=== PATIENT | female | born 1940 | race Caucasian/White ===

== ENCOUNTER → 2016-12-22 | Outpatient (CLI) | payer MEDICARE ==
--- NOTE | 2016-12-22 11:53 | MM ---
Reason for exam: additional evaluation requested from prior study. Last mammogram was performed 1 year ago. History: Patient is postmenopausal, has history of breast cancer at age 46, and history of other cancer. Family history of breast cancer in mother at age 66, breast cancer in maternal cousin at age 50, and breast cancer in 3 other maternal cousins. Excisional biopsy of the right breast, 2000. Lumpectomy of the right breast, 1986. Excisional biopsy of the left breast, 1960. Radiation therapy. Took tamoxifen for 18 years beginning at age 47. Physical Findings: Nurse did not find any significant physical abnormalities on exam. MG 3D Diag Mammo W/Cad ASHKAN Bilateral CC and MLO view(s) were taken. Prior study comparison: December 18, 2015, bilateral MG 3d diag mammo w/cad ASHKAN. December 16, 2014, bilateral MG diagnostic mammo w CAD ASHKAN. The breast tissue is heterogeneously dense. This may lower the sensitivity of mammography. Finding: Architectural distortion in the right breast consistent with previous surgery. No significant changes in finding since December 18, 2015 and December 16, 2014. These results were verbally communicated with the patient and result sheet given to the patient on 12/22/16. ASSESSMENT: Benign, BI-RAD 2 RECOMMENDATION: Routine screening mammogram of both breasts in 1 year.
== END | disposition home or self-care (01) ==
LOC: RADMAMWWP 11:01
PROVIDERS: ATTEND Internal Medicine Hematology & Oncology
DX: Z85.3 Personal history of malignant neoplasm of breast (principal)
CPT/HCPCS: G0204; G0279

== ENCOUNTER 2017-01-07 14:17 | Emergency (ER) | payer MEDICARE ==
[2017-01-07] MEDS ORDERED: diphenhydrAMINE 50 MG CAP PO STA (16:03)
--- NOTE | 2017-01-07 16:05 | ED ---
General Adult HPI - General Chief complaint: Recheck/Abnormal Lab/Rx Stated complaint: poss reaction to iodine/arm swelling Source: patient Mode of arrival: ambulatory Limitations: no limitations - History of Present Illness Initial comments: Patient is a 76-year-old female who presents to the emergency department for evaluation of left arm swelling after a computed tomography scan with IV contrast this morning. Patient reports she has a known ALLERGY to iodine and because of this was premedicated for this computed tomography scan. She reports that the computed tomography scan occurred without incident but approximately 2 hours later she noticed swelling of her left arm where her IV had been placed. She called the department and they advised her that there is concern that she could possibly be bleeding or having ALLERGIC reaction and advised her to come to the emergency department for evaluation. She reports she initially noted the swelling around 1 PM, she was evaluated this afternoon around 3 PM and believed at that time that the swelling had artery began to improve. Patient denies any fevers, chills, chest tightness, rash, GI upset or any other signs or symptoms of ALLERGIC reaction. She does state that she is very tired she was premedicated with Benadryl and she usually takes a nap every day which she has not gotten a chance to do today. Other than that she has no complaints. She denies any pain in the arm, parasthesias or weakness. - Related Data Home Medications Medication Instructions Recorded Confirmed Acetaminophen/Diphenhydramine 2 tab PO HS 03/17/15 01/07/17 [Tylenol PM 500-25mg] Ascorbic Acid [Vitamin C] 500 mg PO DAILY 03/17/15 01/07/17 Atorvastatin [Lipitor] 20 mg PO HS 03/17/15 01/07/17 Calcium Carbonate/Vitamin D3 1 tab PO BID 03/17/15 01/07/17 [Calcium 600-Vit D3 400 Tablet] Carvedilol 37.5 mg PO BID 03/17/15 01/07/17 Cranberry Fruit Extract [Theracran] 650 mg PO DAILY 03/17/15 01/07/17 Estradiol [Estrace Cream 0.01%] 1 applicator VAGINAL Q7D 03/17/15 01/07/17 Fenofibrate Nanocrystallized 145 mg PO HS 03/17/15 01/07/17 [Tricor] Magnesium Gluconate [Magonate] 500 mg PO DAILY 03/17/15 01/07/17 Multivit with Calcium,Iron,Min 1 tab PO BID 03/17/15 01/07/17 [Women's Daily Multivitamin] Afton-3 Fatty Acids [Afton-3] 1,000 mg PO BID 03/17/15 01/07/17 Omeprazole [PriLOSEC] 20 mg PO QAM 03/17/15 01/07/17 Valsartan [Diovan] 160 mg PO HS 03/17/15 01/07/17 Vitamin E (Dl,Tocopheryl Acet) 400 unit PO DAILY 03/17/15 01/07/17 [Vitamin E] metFORMIN HCL [Glucophage] 1,000 mg PO AC-BID 03/17/15 01/07/17 Spironolactone [Aldactone] 25 mg PO QAM 04/18/15 01/07/17 Iron Tab 45 mg PO DAILY 04/28/15 01/07/17 Lactobacillus Acidophilus 1 tab PO DAILY 05/06/15 01/07/17 [Acidophilus] Warfarin [Coumadin] 10 mg PO DAILY 01/07/17 01/07/17 Previous Rx's Medication Instructions Recorded Venlafaxine HCl ER [Effexor XR] 225 mg PO HS #30 cap.er.24h 03/26/15 Allergies Allergy/AdvReac Type Severity Reaction Status Date / Time adhesive Allergy Rash/Hives Verified 01/07/17 15:28 iodine Allergy Rash/Hives Verified 01/07/17 15:28 latex Allergy Rash/Hives Verified 01/07/17 15:28 Sulfa (Sulfonamide Allergy severe Verified 01/07/17 15:28 Antibiotics) headache and rash Review of Systems ROS Statement: Those systems with pertinent positive or pertinent negative responses have been documented in the HPI. ROS Other: All systems not noted in ROS Statement are negative. 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) Respiratory: Denies: cough, dyspnea, wheezes Cardiovascular: Denies: chest pain, palpitations Endocrine: Reports: fatigue Gastrointestinal: Denies: abdominal pain, nausea Skin: Reports: rash (Erythema of the face secondary to radiation contusion and left antecubital fossa consistent with recent IV placement) Neurological: Denies: weakness, numbness, paresthesias Psychiatric: Denies: anxiety Hematological/Lymphatic: Reports: easy bleeding, easy bruising Past Medical History Past Medical History: Blood Disorder, Coronary Artery Disease (CAD), Cancer, Heart Failure, Diabetes Mellitus, Eye Disorder, GERD/Reflux, Hyperlipidemia, Hypertension, Osteoarthritis (OA) Additional Past Medical History / Comment(s): CARDIAC HISTORY (DEFER TO DR. HERNANDEZ NOTES). RT BREAST [id number]. LT LUNG DAMAGED POST SX. (AORTIC VALVE) LT SIDE OF DIAPHRAGM PARALIZED. ARTHRITIS HIPS & KNEES, NECK & SHOULDER PAIN,PANCYTOPENIA- HAD BONE MARROW DONE-NOT CONCLUSIVE, URINE LEAKAGE-WEARS PAD DAILY, OTC GLASSES TO READ ONLY History of Any Multi-Drug Resistant Organisms: None Reported Past Surgical History: Breast Surgery, Cardiac Ablation, Hysterectomy, Pacemaker Additional Past Surgical History / Comment(s): EXC.ASHKAN.CATARACTS WITH LENS IMPLANTS,AORTIC VALVE REPLACE 1996-[facility],. PACEMAKER -2008-[facility],. COLONOSCOPY,. RT [id number] RADIATION & ORAL TAMOXIFEN,. bone marrow biopsy 03/18/2015 Past Anesthesia/Blood Transfusion Reactions: No Reported Reaction Type of Cardiac Device: Permanent Pacemaker Device Placement Date:: 2008 Past Psychological History: No Psychological Hx Reported Smoking Status: Former smoker - Past Family History Father Family Medical History: Cancer Additional Family Medical History / Comment(s): COLON CA Mother Family Medical History: Cancer Additional Family Medical History / Comment(s): BREAST CA General Exam Limitations: no limitations General appearance: alert, in no apparent distress Head exam: Present: atraumatic, normocephalic, normal inspection Eye exam: Present: EOMI, periorbital swelling (Patient underwent periocular radiation today) ENT exam: Present: normal exam, mucous membranes moist Neck exam: Absent: tenderness Respiratory exam: Present: normal lung sounds bilaterally. Absent: respiratory distress, wheezes, rales Cardiovascular Exam: Present: regular rate, normal rhythm, clicks (mechanical valve click) GI/Abdominal exam: Present: soft. Absent: distended Rectal exam: Present: deferred Left Shoulder Exam: Present: normal inspection Upper Arm exam: Present: full ROM, swelling. Absent: tenderness, abrasion, laceration, ecchymosis, deformity, crepidus, dislocation, erythema Elbow exam: Present: full ROM, swelling, ecchymosis. Absent: tenderness, abrasion, laceration, deformity, crepitus, dislocation, erythema, pain w/ pronation/supination, tenderness over radial head Forearm Wrist exam: Present: swelling Hand Wrist exam: Present: normal inspection, other (Normal radial and ulnar pulses) Neuro motor exam: Present: wrist extension intact, thumb opposition intact, thumb IP flexion intact, thumb adduction intact, fingers 2-5 abduction intact Vascular: Present: normal capillary refill Back exam: Present: other (kyphosis) Neurological exam: Present: alert, oriented X3 Psychiatric exam: Present: normal affect, normal mood Skin exam: Present: warm, dry, intact, normal color. Absent: rash Course Vital Signs 01/07/17 14:59 Temperature 97.8 F Pulse Rate 99 Respiratory 18 Rate Blood Pressure 152/70 O2 Sat by Pulse 97 Oximetry - Reevaluation(s) Reevaluation #1: Was reevaluated after the ice at been applied to her arm for approximately 15 minutes. Swelling is decreasing and she feels that her arm is softer. 01/07/17 16:22 Medical Decision Making - Medical Decision Making Patient was seen and evaluated, vital signs were reviewed History was provided by the patient, her medical record as well as her at bedside Underwent a computed tomography scan with IV contrast which was administered via IV in her left antecubital vein earlier this morning She reports around 1 PM she noticed swelling of her left arm No neuro complaints, no pain in the arm Physical exam with soft swelling to the left medial arm at the area of the elbow extending correction up the humerus and approximately correction down the forearm There is green marker on the patient's skin where she had marked the extent of the swelling, it appears to her that her swelling is already decreasing Patient's left arm is neurovascularly intact with strong radial ulnar pulses, normal sensation and strength Swelling is soft and nontender all compartments in the arm are soft and patient has full range of motion I suspect that the patient had some extravasation of blood as well as IV contrast and may be having a mild ALLERGIC reaction There is no signs of compartment syndrome, neurovascular compromise or infection A she was ordered a dose of Benadryl and given an ice pack to apply to her swelling Proper use of an icepack was discussed with patient All questions pertaining to care were answered to the best of my ability, patient appears to be having a mild ALLERGIC reaction with some soft tissue swelling. Recent is in stable condition for discharge home in the care of her . I discussed with the patient and her signs and symptoms of cellulitis as well as compartment syndrome or worsening ALLERGIC reaction advised them to return to the department for any development of concerning symptoms. Patient has been at bedside expressed understanding. Patient was discharged home. Disposition Clinical Impression: Swelling of right upper extremity Clinical Impression: (Ruled Out): Swelling in right armpit Disposition: HOME SELF-CARE Instructions: General Allergic Reaction (ED) Additional Instructions: Apply ice pack to swollen area for 15 minutes at a time and then remove for 15 minutes. Do not apply ice directly to skin, use a towel to shield the skin. Advised painful remove the ice from the skin. Referrals: Eduardo Garcia DO [Primary Care Provider] - 1-2 days Time of Disposition: 16:05
[2017-01-07 16:37] VITALS: BP 151/71; PULSE 90; RESP 16; TEMP 97.7
== END 2017-01-07 16:39 | disposition home or self-care (01) ==
LOC: EC 14:17
DX: M79.89 Other specified soft tissue disorders (principal); I25.10 Atherosclerotic heart disease of native coronary artery without angina pectoris; I11.0 Hypertensive heart disease with heart failure; I50.9 Heart failure, unspecified; E11.9 Type 2 diabetes mellitus without complications; K21.9 Gastro-esophageal reflux disease without esophagitis; E78.5 Hyperlipidemia, unspecified; M16.0 Bilateral primary osteoarthritis of hip; M17.0 Bilateral primary osteoarthritis of knee; Z85.3 Personal history of malignant neoplasm of breast; Z87.891 Personal history of nicotine dependence; Z88.2 Allergy status to sulfonamides; Z91.040 Latex allergy status; Z91.048 Other nonmedicinal substance allergy status; Z79.84 Long term (current) use of oral hypoglycemic drugs; Z79.01 Long term (current) use of anticoagulants; Z79.899 Other long term (current) drug therapy
CPT/HCPCS: 99283

== ENCOUNTER → 2017-01-07 | Outpatient (CLI) | payer MEDICARE ==
--- NOTE | 2017-01-07 08:14 | CT ---
EXAMINATION TYPE: CT ChestAbdPelvis w con DATE OF EXAM: 01/07/2017 COMPARISON: 01/28/2012 HISTORY: Lymphoma CT DLP: 659.20 mGycm Automated exposure control for dose reduction was used. CONTRAST: CT scan of the chest, abdomen and pelvis is performed with Oral Contrast and with IV Contrast, patien t injected with 100 ml mL of Omnipaque 300. FINDINGS: LUNGS: There is a small the moderate right-sided pleural effusion. Interstitial pattern seen. Within the right upper lobe anterior segment on image 25 there is a 2 mm pulmonary nodule. Additional pulmon shreya nodule right upper lobe image 21 subsegmental areas of consolidation most typical of atelectasis. Additional 6 mm nodule right upper lobe on image 22. MEDIASTINUM: The heart is enlarged. Lack of contrast limits assessment for adenopathy. Shotty adenopa thy in the mediastinum and hilum noted bilaterally. No pathologic adenopathy in the axilla. Cardiac l dedra are noted. Suspected 1.7 cm pathologic noted in the upper mediastinum paratracheal left with add itional shotty adenopathy extending into the supraclavicular region. Also suspect a right paratrachea l area of adenopathy measuring a short axis I.4 cm. Contrast wasn't be recommended on future studies to help delineate separate vascular structures from adenopathy. Sternotomy changes noted. OTHER: No additional significant abnormality is seen. LIVER/GB: There are small gallstones. Liver measures 19 cm compatible with hepatomegaly. PANCREAS: No significant abnormality is seen. SPLEEN: Spleen measures 15 cm compatible with splenomegaly. ADRENALS: No significant abnormality is seen. KIDNEYS: No significant abnormality is seen. BOWEL: No significant abnormality is seen. LYMPH NODES: Numerous lymph nodes are seen throughout the mesentery and retroperitoneum compatible wi th shotty adenopathy. There are pathologic lymph nodes with the largest measuring a short axis of 1.6 cm left periaortic region. Lack of contrast limits assessment. Shotty adenopathy in the inguinal reg ion and iliac chains seen within 1.2 cm pathologic adenopathy noted in the right iliac chain. Numerou s shotty adenopathy seen scattered throughout the retroperitoneum, supraclavicular region and mediast inum OSSEOUS STRUCTURES: Hypertrophic and degenerative changes spine noted. OTHER: Trace amount of fluid is seen in the pelvis. There is thickening of the left rectus muscle whi ch measures 3 cm and has a more focal rounded nodular component measuring 1.6 cm. Differential diagno sis would include mass abscess or hematoma. There is new from the previous exam. IMPRESSION: 1. Marked thickening of the left rectus muscle new from the previous exam of 2011. Measures 3 cm with a more focal rounded area centrally measuring 1.6 cm. Differential diagnosis would include mass, pre vious hematoma. Although abscess not excluded there is no inflammatory change but should be correlate d clinically. 2. Pelvic, retroperitoneal and mediastinal adenopathy as measured above 3. Hepatosplenomegaly 4. Cholelithiasis 5. Small to moderate sized right pleural effusion. 6. There are 3 right-sided pulmonary nodules the largest measuring 6 mm within the right upper lobe.
== END | disposition home or self-care (01) ==
LOC: RADCTMAIN 06:47
PROVIDERS: ATTEND Internal Medicine Hematology & Oncology
DX: R59.0 Localized enlarged lymph nodes (principal); R16.2 Hepatomegaly with splenomegaly, not elsewhere classified; K80.20 Calculus of gallbladder without cholecystitis without obstruction; R91.8 Other nonspecific abnormal finding of lung field; J90 Pleural effusion, not elsewhere classified; C82.18 Follicular lymphoma grade II, lymph nodes of multiple sites
CPT/HCPCS: 71260; 74177; Q9967

== ENCOUNTER 2017-12-13 05:48 | Day surgery (SDC) | payer MEDICARE ==
[2017-12-12 10:47] VITALS: BMI 24.2
[~2017-12-13 05:48] MED LIST: LACTATED RINGERS 1,000 ML IV SCH; MIDAZOLAM 2 MG/2 ML VIAL IV PRN
[2017-12-13 06:22] VITALS: TEMP 97.8
[2017-12-13] MEDS ORDERED: LIDOCAINE 1% 20 ML VIAL (10MG/ML) FOR IV START INTRADERMA ONE (06:40)
[2017-12-13 06:42] LABS: Glucose,Whole Blood 178 mg/dL (75-99)
[2017-12-13] MEDS ORDERED: PROPOFOL 10 MG/ML 20 ML VIAL IV ONE (07:07)
[2017-12-13 07:51] VITALS: RESP 20
--- NOTE | 2017-12-13 07:56 | PCN ---
PROCEDURE NOTE DATE OF PROCEDURE: 12/13/2017 PREOPERATIVE DIAGNOSES: Anemia and lymphoma. POSTOPERATIVE DIAGNOSES: Anemia and lymphoma. PROCEDURE: Bone marrow aspirate and biopsy. SITE: Right iliac crest. ANESTHESIA: Local with IV systemic sedation. DETAILS: Utilizing sterile technique, the skin overlying the right iliac crest was prepared with Betadine and alcohol. After adequate sterile draping, local anesthesia and systemic sedation size 11, 4-inch Jamshidi needle was utilized to access the periosteum with ease. A total of 16 mL of aspirate as well as 1 cm bone core biopsies were obtained. The patient tolerated the procedure very well. There was no immediate procedure related complications. TOTAL BLOOD LOSS: Less than 1 mL. RESULTS: Pending. MMODL / IJN: [id number] /
[2017-12-13 08:09] VITALS: BP 133/77; PULSE 82
[2017-12-13 12:09] LABS: MCH 33.5 pg (25.0-35.0); MCHC 34.9 g/dL (31.0-37.0); Mean Platelet Volume 8.4; RBC 2.06 m/uL (3.80-5.40); RDW 14.3 % (11.5-15.5)
[2017-12-13 12:15] LABS: WBC 0.7 k/uL (3.8-10.6)
[2017-12-13 12:16] LABS: HCT 19.7 % (34.0-46.0); HGB 6.9 gm/dL (11.4-16.0)
[2017-12-13 12:41] LABS: Polychromasia Present
[2017-12-13 12:42] LABS: Platelet Count 83 k/uL (150-450)
== END 2017-12-13 08:17 | disposition home or self-care (01) ==
LOC: OR 05:48
PROVIDERS: ATTEND Internal Medicine Hematology & Oncology
DX: C85.90 Non-Hodgkin lymphoma, unspecified, unspecified site (principal); D64.9 Anemia, unspecified
CPT/HCPCS: 38222; 85025; J2704

== ENCOUNTER 2017-12-18 14:25 | Emergency (ER) | payer MEDICARE ==
[2017-12-18 15:16] LABS: HCT 24.7 % (34.0-46.0); HGB 8.2 gm/dL (11.4-16.0); MCH 33.2 pg (25.0-35.0); MCHC 33.3 g/dL (31.0-37.0); MCV 99.8 fL (80.0-100.0); Macrocytosis Slight; Mean Platelet Volume 7.4; Platelet Count 107 k/uL (150-450); Poikilocytosis Slight; RBC 2.48 m/uL (3.80-5.40); RDW 15.1 % (11.5-15.5)
[2017-12-18 15:24] LABS: WBC 0.9 k/uL (3.8-10.6)
[2017-12-18 15:32] LABS: INR 2.5 (<1.2); Partial Thromboplastin Time 29.9 sec (22.0-30.0); Prothrombin Time 22.7 sec (9.0-12.0)
--- NOTE | 2017-12-18 15:34 | XR ---
EXAMINATION TYPE: XR chest 2V DATE OF EXAM: 12/18/2017 COMPARISON: 05/07/2015 INDICATION: Weakness TECHNIQUE: Frontal and lateral views of the chest are obtained. FINDINGS: The heart size is normal. The pulmonary vasculature is normal. The lungs are clear. Pacemaker overlies left chest. IMPRESSION: 1. No acute pulmonary process.
[2017-12-18 15:36] LABS: ALT 25 U/L (9-52); AST 37 U/L (14-36); Albumin 4.3 g/dL (3.5-5.0); Alkaline Phosphatase 106 U/L (38-126); Anion Gap 13 mmol/L; Blood Urea Nitrogen 23 mg/dL (7-17); Calcium 9.5 mg/dL (8.4-10.2); Carbon Dioxide 24 mmol/L (22-30); Chloride 100 mmol/L (98-107); Glucose 144 mg/dL (74-99); Potassium 4.6 mmol/L (3.5-5.1); Sodium 137 mmol/L (137-145); Total Bilirubin 0.5 mg/dL (0.2-1.3); Total Protein 6.1 g/dL (6.3-8.2)
[2017-12-18 15:40] LABS: Creatine Kinase <20 U/L (30-135)
--- NOTE | 2017-12-18 15:41 | ED ---
General Adult HPI - General Chief complaint: Weakness Stated complaint: Lightheaded Time Seen by Provider: 12/18/17 14:38 Source: patient, family, RN notes reviewed Mode of arrival: wheelchair Limitations: no limitations - History of Present Illness Initial comments: Patient is a pleasant 77-year-old female presenting to the emergency department with lightheadedness. Onset of symptoms was a few days ago. Symptoms were somewhat worse today. No spinning type sensation. Symptoms are worse with upright position and movement. No chest pain. No dyspnea. Patient had difficulty obtaining neck her blood pressure this morning. Patient did recently have her blood pressure medication lower secondary to blood pressure readings at her doctor's office. 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 Tafoya for this. - Related Data Home Medications Medication Instructions Recorded Confirmed Acetaminophen/Diphenhydramine 2 tab PO HS 03/17/15 12/18/17 [Tylenol PM 500-25mg] Ascorbic Acid [Vitamin C] 500 mg PO DAILY 03/17/15 12/18/17 Atorvastatin [Lipitor] 10 mg PO HS 03/17/15 12/18/17 Calcium Carbonate/Vitamin D3 2 tab PO BID 03/17/15 12/18/17 [Calcium 600-Vit D3 400 Tablet] Carvedilol 12.5 mg PO BID 03/17/15 12/18/17 Cranberry Fruit Extract [Theracran] 650 mg PO DAILY 03/17/15 12/18/17 Estradiol [Estrace Cream 0.01%] 1 applicator VAGINAL Q3D PRN 03/17/15 12/18/17 [place]-3 Fatty Acids [[place]-3] 1,000 mg PO BID 03/17/15 12/18/17 Omeprazole [PriLOSEC] 20 mg PO BID 03/17/15 12/18/17 Valsartan [Diovan] 160 mg PO HS 03/17/15 12/18/17 Vitamin E (Dl,Tocopheryl Acet) 400 unit PO DAILY 03/17/15 12/18/17 [Vitamin E] metFORMIN HCL [Glucophage] 1,000 mg PO QAM 03/17/15 12/18/17 Warfarin [Coumadin] 10 mg PO MOTUTHFRSA 01/07/17 12/18/17 Clopidogrel Bisulfate [Plavix] 75 mg PO DAILY 12/12/17 12/18/17 Furosemide [Lasix] 40 mg PO QAM 12/12/17 12/18/17 Multivit-Min/Iron/Folic/Lutein 1 tab PO DAILY 12/12/17 12/18/17 [Centrum Silver Women Tablet] Polyethylene Glycol 3350 [Miralax] 17 gm PO DAILY 12/12/17 12/18/17 Potassium Chloride [Klor-Con 10] 10 meq PO DAILY 12/12/17 12/18/17 Warfarin [Coumadin] 5 mg PO SUWE 12/12/17 12/18/17 metFORMIN HCL [Glucophage] 500 mg PO HS@1800 12/12/17 12/18/17 Previous Rx's Medication Instructions Recorded Venlafaxine HCl ER [Effexor XR] 225 mg PO HS #30 cap.er.24h 03/26/15 Allergies Allergy/AdvReac Type Severity Reaction Status Date / Time adhesive Allergy Rash/Hives Verified 12/18/17 14:57 iodine Allergy Rash/Hives Verified 12/18/17 14:57 latex Allergy Rash/Hives Verified 12/18/17 14:57 Sulfa (Sulfonamide Allergy severe Verified 12/18/17 14:57 Antibiotics) headache and rash Review of Systems ROS Statement: Those systems with pertinent positive or pertinent negative responses have been documented in the HPI. ROS Other: All systems not noted in ROS Statement are negative. Constitutional: Denies: fever Eyes: Denies: eye pain ENT: Denies: ear pain Respiratory: Denies: cough, dyspnea Cardiovascular: Denies: chest pain Endocrine: Denies: fatigue Gastrointestinal: Denies: abdominal pain Genitourinary: Denies: dysuria Musculoskeletal: Denies: back pain Skin: Denies: rash Neurological: Denies: weakness Past Medical History Past Medical History: Blood Disorder, Coronary Artery Disease (CAD), Cancer, Heart Failure, Diabetes Mellitus, Eye Disorder, GERD/Reflux, Hyperlipidemia, Hypertension, Osteoarthritis (OA) Additional Past Medical History / Comment(s): CARDIAC HISTORY (DEFER TO DR. HERNANDEZ NOTES). RT BREAST [id number]. 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 COLONOSCOPY,. RT [id number] RADIATION & ORAL TAMOXIFEN,. Bone Marrow Dx x2 Past Anesthesia/Blood Transfusion Reactions: No Reported Reaction, Motion Sickness Date of Last Stent Placement:: x2 stents Type of Cardiac Device: Permanent Pacemaker Device Placement Date:: 2008 Past Psychological History: Depression Smoking Status: Former smoker Past Alcohol Use History: None Reported Past Drug Use History: None Reported - Past Family History Father Family Medical History: Cancer Additional Family Medical History / Comment(s): COLON CA Mother Family Medical History: Cancer Additional Family Medical History / Comment(s): BREAST CA General Exam Limitations: no limitations General appearance: alert, in no apparent distress Head exam: Present: atraumatic Eye exam: Present: normal appearance, PERRL, EOMI. Absent: nystagmus ENT exam: Present: normal oropharynx Neck exam: Present: normal inspection Respiratory exam: Present: normal lung sounds bilaterally Cardiovascular Exam: Present: regular rate, normal rhythm Expanded Peripheral pulses: 2+: Radial (R), Radial (L), Dorsalis Pedis (R), Dorsalis Pedis (L) GI/Abdominal exam: Present: soft. Absent: tenderness Extremities exam: Present: normal inspection Neurological exam: Present: alert, CN II-XII intact. Absent: motor sensory deficit Expanded Neurological exam: Present: protecting the airway Speech: Present: fluid speech Cranial nerves: EOM's Intact: Normal, Facial Sensation: Normal Sensory exam: Upper Extremity Light Touch: Normal, Lower Extremity Light Touch: Normal Motor strength exam: RUE: 5, LUE: 5, RLE: 5, LLE: 5 Eye Response: (4) open spontaneously Motor Response: (6) obeys commands Verbal Response: (5) oriented Psychiatric exam: Present: normal affect, normal mood Skin exam: Present: normal color Course Vital Signs 12/18/17 12/18/17 12/18/17 14:26 16:16 16:35 Temperature 98.2 F Pulse Rate 100 91 Respiratory 18 16 16 Rate Blood Pressure 160/79 123/65 O2 Sat by Pulse 100 100 Oximetry EKG Findings - EKG Comments: EKG Findings:: Paced rhythm and 99. VT 148. QRS 132. QT 404. QTC 518. Normal axis. No acute ST change. Medical Decision Making - Medical Decision Making Patient reevaluated and resting comfortably in bed. Patient and family updated on results. Patient tolerating symptoms at this time. Case was discussed in detail with Dr. Tafoya, who is familiar with this patient and is okay with discharge and follow-up. - Lab Data Result diagrams: 12/18/17 14:45 12/18/17 14:45 Lab Results 12/18/17 12/18/17 12/18/17 Range/Units 14:45 14:45 14:45 WBC 0.9 L* (3.8-10.6) k/uL RBC 2.48 L (3.80-5.40) m/uL Hgb 8.2 L (11.4-16.0) gm/dL Hct 24.7 L (34.0-46.0) % MCV 99.8 (80.0-100.0) fL MCH 33.2 (25.0-35.0) pg MCHC 33.3 (31.0-37.0) g/dL RDW 15.1 (11.5-15.5) % Plt Count 107 L (150-450) k/uL Manual Slide Review Performed Poikilocytosis Slight Macrocytosis Slight PT (9.0-12.0) sec INR (<1.2) APTT (22.0-30.0) sec Sodium 137 (137-145) mmol/L Potassium 4.6 (3.5-5.1) mmol/L Chloride 100 (98-107) mmol/L Carbon Dioxide 24 (22-30) mmol/L Anion Gap 13 mmol/L BUN 23 H (7-17) mg/dL Creatinine 0.70 (0.52-1.04) mg/dL Est GFR (CKD-EPI)AfAm >90 (>60 ml/min/1.73 sqM) Est GFR (CKD-EPI)NonAf 84 (>60 ml/min/1.73 sqM) Glucose 144 H (74-99) mg/dL Plasma Lactic Acid Aleks (0.7-2.0) mmol/L Calcium 9.5 (8.4-10.2) mg/dL Total Bilirubin 0.5 (0.2-1.3) mg/dL AST 37 H (14-36) U/L ALT 25 (9-52) U/L Alkaline Phosphatase 106 (38-126) U/L Total Creatine Kinase <20 L (30-135) U/L CK-MB (CK-2) 0.3 (0.0-2.4) ng/mL CK-MB (CK-2) Rel Index Troponin I <0.012 (0.000-0.034) ng/mL Total Protein 6.1 L (6.3-8.2) g/dL Albumin 4.3 (3.5-5.0) g/dL 12/18/17 12/18/17 Range/Units 14:45 14:45 WBC (3.8-10.6) k/uL RBC (3.80-5.40) m/uL Hgb (11.4-16.0) gm/dL Hct (34.0-46.0) % MCV (80.0-100.0) fL MCH (25.0-35.0) pg MCHC (31.0-37.0) g/dL RDW (11.5-15.5) % Plt Count (150-450) k/uL Manual Slide Review Poikilocytosis Macrocytosis PT 22.7 H (9.0-12.0) sec INR 2.5 H (<1.2) APTT 29.9 (22.0-30.0) sec Sodium (137-145) mmol/L Potassium (3.5-5.1) mmol/L Chloride (98-107) mmol/L Carbon Dioxide (22-30) mmol/L Anion Gap mmol/L BUN (7-17) mg/dL Creatinine (0.52-1.04) mg/dL Est GFR (CKD-EPI)AfAm (>60 ml/min/1.73 sqM) Est GFR (CKD-EPI)NonAf (>60 ml/min/1.73 sqM) Glucose (74-99) mg/dL Plasma Lactic Acid Aleks 2.0 (0.7-2.0) mmol/L Calcium (8.4-10.2) mg/dL Total Bilirubin (0.2-1.3) mg/dL AST (14-36) U/L ALT (9-52) U/L Alkaline Phosphatase (38-126) U/L Total Creatine Kinase (30-135) U/L CK-MB (CK-2) (0.0-2.4) ng/mL CK-MB (CK-2) Rel Index Troponin I (0.000-0.034) ng/mL Total Protein (6.3-8.2) g/dL Albumin (3.5-5.0) g/dL - Radiology Data Radiology results: report reviewed (Computed tomography scan of the brain shows chronic changes.), image reviewed (Two-view chest x-ray shows no acute process.) Disposition Clinical Impression: Lightheadedness Disposition: HOME SELF-CARE Condition: Stable Instructions: Lightheadedness (ED) Additional Instructions: Please follow-up with Dr. Tafoya and primary care physician in the beginning of the week. Return for increased lightheadedness, difficulty walking, confusion, weakness, worsening or changing symptoms or other concerns. Is patient prescribed a controlled substance at d/c from ED?: No Referrals: Eduardo Garcia DO [Primary Care Provider] - 1-2 days Darnell Tafoya MD [STAFF PHYSICIAN] - 1-2 days Time of Disposition: 17:11
[2017-12-18 15:53] LABS: Creatine Kinase MB 0.3 ng/mL (0.0-2.4); Troponin I <0.012 ng/mL (0.000-0.034)
[2017-12-18 16:18] VITALS: RESP 16
--- NOTE | 2017-12-18 16:31 | CT ---
EXAMINATION TYPE: CT brain wo con DATE OF EXAM: 12/18/2017 COMPARISON: NONE INDICATION: Dizziness DLP: 1064.2 mGycm, Automated exposure control for dose reduction was used. CONTRAST: None CT of the brain is performed utilizing 3 mm thick sections through the posterior fossa and 3 mm thick sections through the remaining calvarium. Study is performed within 24 hours of arrival to the hosp ital. No abnormal hyperdensity is present to suggest an acute intracranial hemorrhage. No mass lesion is evident. No acute infarcts are evident. There is periventricular white matter hypodensity, most likely on the basis of chronic white matter ischemic changes is may be somewhat confluent. Physiologic basal gangli on calcification is present. Ventricles and sulci are mildly prominent for the patient age. Paranasal sinuses and mastoid air cells within the [id number] are clear. IMPRESSIONS: 1. Chronic appearing periventricular white matter ischemic changes.
[2017-12-18] MEDS ORDERED: SODIUM CHLORIDE 0.9% 250 ML IV STA (17:07)
[2017-12-18 17:46] VITALS: BP 122/72; PULSE 90
[2017-12-18 18:15] VITALS: TEMP 97.8
== END 2017-12-18 18:15 | disposition home or self-care (01) ==
LOC: EC 14:25
DX: R42 Dizziness and giddiness (principal); I25.10 Atherosclerotic heart disease of native coronary artery without angina pectoris; I11.0 Hypertensive heart disease with heart failure; I50.9 Heart failure, unspecified; E78.5 Hyperlipidemia, unspecified; K21.9 Gastro-esophageal reflux disease without esophagitis; E11.9 Type 2 diabetes mellitus without complications; M19.90 Unspecified osteoarthritis, unspecified site; F32.9 Major depressive disorder, single episode, unspecified; Z87.891 Personal history of nicotine dependence; Z85.3 Personal history of malignant neoplasm of breast; Z85.830 Personal history of malignant neoplasm of bone; Z85.828 Personal history of other malignant neoplasm of skin; Z79.01 Long term (current) use of anticoagulants; Z79.84 Long term (current) use of oral hypoglycemic drugs; Z79.899 Other long term (current) drug therapy; Z88.2 Allergy status to sulfonamides; Z91.040 Latex allergy status; Z91.048 Other nonmedicinal substance allergy status; Z88.8 Allergy status to other drugs, medicaments and biological substances; Z95.0 Presence of cardiac pacemaker; Z95.5 Presence of coronary angioplasty implant and graft
CPT/HCPCS: 36415; 70450; 71046; 80053; 82550; 82553; 83605; 84484; 85025; 85610; 85730; 93005; 96360; 99285

== ENCOUNTER → 2018-01-13 | Outpatient (CLI) | payer MEDICARE ==
--- NOTE | 2018-01-16 09:00 | MM ---
Reason for exam: additional evaluation requested from prior study. Last mammogram was performed 1 year and 1 month ago. History: Patient is postmenopausal, has history of breast cancer at age 46, and history of other cancer. Family history of breast cancer in mother at age 66, breast cancer in maternal cousin at age 50, and breast cancer in 3 other maternal cousins. Excisional biopsy of the right breast, 2000. Lumpectomy of the right breast, 1986. Excisional biopsy of the left breast, 1960. Radiation therapy. Taking progesterone beginning at age 57. Took tamoxifen for 18 years beginning at age 47. Physical Findings: Nurse did not find any significant physical abnormalities on exam. MG 3D Diag Mammo W/Cad ASHKAN Bilateral CC and MLO view(s) were taken. Prior study comparison: December 22, 2016, bilateral MG 3d diag mammo w/cad ASHKAN. December 18, 2015, bilateral MG 3d diag mammo w/cad ASHKAN. The breast tissue is extremely dense which could obscure a lesion on mammography. Finding #1: Architectural distortion in the upper outer quadrant of the right breast consistent with known lumpectomy. Finding #2: There are typically benign vascular, dystrophic, round calcifications. There is no discrete abnormality. Left axillary pacemaker. These results were verbally communicated with the patient and result sheet given to the patient on 01/13/18. ASSESSMENT: Benign, BI-RAD 2 RECOMMENDATION: Follow-up diagnostic mammogram of both breasts in 1 year.
== END | disposition home or self-care (01) ==
LOC: RADMAMWWP 14:50
PROVIDERS: ATTEND Internal Medicine Hematology & Oncology
DX: Z08 Encounter for follow-up examination after completed treatment for malignant neoplasm (principal); Z85.3 Personal history of malignant neoplasm of breast
CPT/HCPCS: 77066; G0279; 77062

== ENCOUNTER → 2018-02-03 | Outpatient (CLI) | payer MEDICARE ==
[~2018-02-03] MED LIST changes: -LACTATED RINGERS 1,000 ML IV SCH; -MIDAZOLAM 2 MG/2 ML VIAL IV PRN; +SODIUM CHLORIDE 0.9% 500 ML in EMPTY BAG 1 BAG IV PRN
[2018-02-03 10:42] VITALS: RESP 18
[2018-02-03 12:11] VITALS: BP 148/72; PULSE 91; TEMP 98.1
== END | disposition home or self-care (01) ==
LOC: PROCWHC3 10:04
PROVIDERS: ATTEND Internal Medicine Hematology & Oncology
DX: D64.81 Anemia due to antineoplastic chemotherapy (principal)
CPT/HCPCS: 86900; 86901; 86850; 86920; 36430; P9016

== ENCOUNTER 2018-02-24 11:10 | Day surgery (SDC) | payer MEDICARE ==
[2018-02-21 14:41] VITALS: BMI 24.0
[~2018-02-24 11:10] MED LIST changes: +Pre Op ABX Message 1 EACH MISC MISCELLANE ONE; -SODIUM CHLORIDE 0.9% 500 ML in EMPTY BAG 1 BAG IV PRN
[2018-02-24 11:50] VITALS: RESP 16; TEMP 98.4
[2018-02-24] MEDS ORDERED: LIDOCAINE 1% 20 ML VIAL (10MG/ML) FOR IV START INTRADERMA ONE (11:57)
[2018-02-24] MEDS ORDERED: LACTATED RINGERS 1,000 ML IV ONE (11:57)
[2018-02-24 12:03] LABS: INR 1.1 (<1.2); Prothrombin Time 10.9 sec (9.0-12.0)
[2018-02-24] MEDS ORDERED: ceFAZolin IN SWFI 2 GM/20 ML SYRINGE IVP STA (12:24)
--- NOTE | 2018-02-24 12:29 | P.GSHP ---
History of Present Illness H&P Date: 02/24/18 Chief Complaint: Lymphoma Patient here today for Port-A-Cath placement. She is undergoing chemotherapy for lymphoma. Scheduled for next chemotherapy treatment next week. She has not had a port in the past. She does have a left-sided pacemaker. Past Medical History Past Medical History: Blood Disorder, Coronary Artery Disease (CAD), Cancer, Heart Failure, Diabetes Mellitus, Eye Disorder, GERD/Reflux, Hyperlipidemia, Hypertension, Osteoarthritis (OA) Additional Past Medical History / Comment(s): CARDIAC HISTORY (DEFER TO DR. HERNANDEZ NOTES). RT BREAST [id number]. 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 ARTHRITIS HIPS & KNEES, NECK & SHOULDER PAIN,PANCYTOPENIA, Bone Marrow CA dx 2014, 2016, 2017 currently receiving chemotherapy. 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 Oxygen 2l /nc 24hr/7d, History of Any Multi-Drug Resistant Organisms: None Reported Past Surgical History: Breast Surgery, Cardiac Ablation, Heart Catheterization With Stent, Hysterectomy, Pacemaker Additional Past Surgical History / Comment(s): ASHKAN.CATARACTS WITH LENS IMPLANTS, AORTIC VALVE REPLACE 1996-[facility] ([facility])-2008 and replaced 2014. COLONOSCOPY,. RT [id number] RADIATION & ORAL TAMOXIFEN,. Bone Marrow Bx x2-2014 and 2016, 2017 Past Anesthesia/Blood Transfusion Reactions: No Reported Reaction, Motion Sickness Date of Last Stent Placement:: x2 stents Type of Cardiac Device: Permanent Pacemaker Device Placement Date:: 2014 Smoking Status: Former smoker - Past Family History Father Family Medical History: Cancer Additional Family Medical History / Comment(s): COLON CA Mother Family Medical History: Cancer Additional Family Medical History / Comment(s): BREAST CA Medications and Allergies Home Medications Medication Instructions Recorded Confirmed Type Acetaminophen/Diphenhydramine 2 tab PO HS 03/17/15 02/21/18 History [Tylenol PM 500-25mg] Ascorbic Acid [Vitamin C] 500 mg PO DAILY 03/17/15 02/21/18 History Atorvastatin [Lipitor] 10 mg PO MOWEFR 03/17/15 02/21/18 History Calcium Carbonate/Vitamin D3 2 tab PO BID 03/17/15 02/21/18 History [Calcium 600-Vit D3 400 Tablet] Carvedilol 12.5 mg PO BID 03/17/15 02/21/18 History Cranberry Fruit Extract [Theracran] 650 mg PO DAILY 03/17/15 02/21/18 History Estradiol [Estrace Cream 0.01%] 1 applicator VAGINAL Q3D PRN 03/17/15 02/21/18 History [place]-3 Fatty Acids [[place]-3] 1,000 mg PO BID 03/17/15 02/21/18 History Omeprazole [PriLOSEC] 20 mg PO BID 03/17/15 02/21/18 History Valsartan [Diovan] 160 mg PO HS 03/17/15 02/21/18 History metFORMIN HCL [Glucophage] 500 mg PO QAM 03/17/15 02/21/18 History Clopidogrel Bisulfate [Plavix] 75 mg PO DAILY 12/12/17 02/21/18 History Furosemide [Lasix] 40 mg PO QAM 12/12/17 02/21/18 History Multivit-Min/Iron/Folic/Lutein 1 tab PO DAILY 12/12/17 02/21/18 History [Centrum Silver Women Tablet] Polyethylene Glycol 3350 [Miralax] 17 gm PO DAILY 12/12/17 02/21/18 History Potassium Chloride [Klor-Con 10] 10 meq PO DAILY 12/12/17 02/21/18 History Warfarin [Coumadin] 7.5 mg PO DIRECTED 12/12/17 02/21/18 History metFORMIN HCL [Glucophage] 250 mg PO HS 12/12/17 02/21/18 History Ferrous Sulfate [Feosol] 325 mg PO DAILY 02/21/18 02/21/18 History Fluticasone Nasal [place] [Flonase 1 spray EA NOSTRIL DAILY 02/21/18 02/21/18 History Nasal [place]] Gatifloxacin [Zymaxid Ophth Soln] 1 drop RIGHT EYE Q6H 02/21/18 02/21/18 History Loratadine [Claritin] 10 mg PO DAILY 02/21/18 02/21/18 History Ondansetron HCl [Zofran] 4 mg PO DAILY PRN 02/21/18 02/21/18 History Saline Nasal Gel [[place] Nasal Gel] 1 applic TOPICAL DAILY 02/21/18 02/21/18 History Venlafaxine HCl ER [Effexor XR] 3 tab PO HS 02/21/18 02/21/18 History Allergies Allergy/AdvReac Type Severity Reaction Status Date / Time adhesive Allergy Rash/Hives Verified 02/24/18 11:40 iodine Allergy Rash/Hives Verified 02/24/18 11:40 latex Allergy Rash/Hives Verified 02/24/18 11:40 Sulfa (Sulfonamide Allergy severe Verified 02/24/18 11:40 Antibiotics) headache and rash Surgical - Exam Vital Signs Temp Pulse Resp BP Pulse Ox 98.4 F 98 16 118/57 100 02/24/18 11:48 02/24/18 11:48 02/24/18 11:48 02/24/18 11:48 02/24/18 11:48 Physical exam: General: Well-developed, well-nourished HEENT: Normocephalic, sclerae nonicteric Abdomen: Nontender, nondistended Extremities: No edema Neuro: Alert and oriented Assessment and Plan (1) Lymphoma Narrative/Plan: Will proceed with Port-A-Cath placement at this time. Risks of bleeding, infection, DVT, pneumothorax, catheter malfunction, anesthesia related complications were discussed. The patient understands and wishes to proceed. Status: Acute Code(s): C85.90 - NON-HODGKIN LYMPHOMA, UNSPECIFIED, UNSPECIFIED SITE SNOMED Code(s): 529565822
[2018-02-24] MEDS ORDERED: HEPARIN SODIUM,PORCINE 5,000 UNIT/ML 1 ML VIAL SQ ONE (12:35)
[2018-02-24] MEDS ORDERED: ONDANSETRON 4 MG/2 ML VIAL IVP ONE (12:35)
[2018-02-24] MEDS ORDERED: HEPARIN SODIUM,PORCINE 100 UNIT/ML 5 ML VIAL IV ONE (12:38)
[2018-02-24] MEDS ORDERED: LIDOCAINE 1%-EPI 1:100,000 30 ML VIAL SQ ONE (12:38)
[2018-02-24] MEDS ORDERED: LIDOCAINE 1% INJ 10MG/ML (20 ML MDV) ONE (12:39)
[2018-02-24] MEDS ORDERED: PROPOFOL 10 MG/ML 20 ML VIAL IV ONE (12:39)
[2018-02-24] MEDS ORDERED: MIDAZOLAM 2 MG/2 ML VIAL ONE (12:39)
[2018-02-24] MEDS ORDERED: KETAMINE 10 MG/ML 20 ML VIAL ONE (12:39)
[2018-02-24] MEDS ORDERED: fentaNYL (PF) 50 MCG/ML 2 ML AMP ONE (12:39)
[2018-02-24] MEDS ORDERED: SODIUM CHLORIDE 0.9% 50 ML with ceFAZolin 2,000 MG IV ONE ×2 (13:03)
[2018-02-24] MEDS ORDERED: NALOXONE 0.4 MG/ML 1 ML VIAL IV PRN (13:42)
--- NOTE | 2018-02-24 13:44 | P.OP ---
Date of Procedure: 02/24/18 Procedure(s) Performed: PREOPERATIVE DIAGNOSIS: Lymphoma POSTOPERATIVE DIAGNOSIS: Same PROCEDURE: Port-A-Cath placement SURGEON: Edin EBL: Minimal ANESTHESIA: Sedation COMPLICATIONS: None OPERATIVE PROCEDURE: Patient was brought and placed on the operative table in the supine position. The patient was sedated per anesthesia that time. The chest and neck were prepped and draped in usual sterile fashion. The ultrasound probe was used to identify the location of the right internal jugular vein. The skin was localized with lidocaine. The Seldinger needle was advanced into the IJ under ultrasound guidance. The wire was advanced through the needle under fluoroscopic guidance into the superior vena cava. A port pocket was created in the right infraclavicular location. The catheter was tunneled from the wire entrance site to the port pocket. The port was then connected to the catheter. The dilator introducer was threaded over the guidewire. The guidewire and dilator were then removed. The catheter was advanced through the introducer and introducer was then removed. The tip was seen to be in the right atrial junction. Port was flushed with both saline and a Hep-Lock solution. There was good flow both in and out of the port. The port was sutured in underlying tissues using 3-0 silk sutures. The subcutaneous tissues were reapproximated using 3-0 Vicryl sutures and the skin at both locations using 4-0 Monocryl sutures. Steri-Strips and sterile dressings then applied. DISPOSITION: Stable to recovery room
[2018-02-24 13:58] VITALS: BP 119/70; PULSE 87
--- NOTE | 2018-02-24 14:23 | XR ---
EXAMINATION TYPE: XR chest 1V confirm line [facility] DATE OF EXAM: 02/24/2018 COMPARISON: 12/18/2017 HISTORY: 77-year-old female line placement check TECHNIQUE: Single frontal view of the chest is obtained. FINDINGS: Right-sided anterior chest wall injection port with catheter tip at the cavoatrial junction. Left ant erior chest wall pacemaker generator with right atrial, right ventricular, and coronary sinus leads. Median sternotomy wires are present. Heart normal size. Atherosclerotic arch calcifications. Mild int erstitial prominence is unchanged. No consolidation or pleural effusion. IMPRESSION: Right-sided chest wall injection port with catheter tip at the caval atrial junction. No acute change .
--- NOTE | 2018-02-24 16:00 | FL ---
EXAMINATION TYPE: FL guided central line placement DATE OF EXAM: 02/24/2018 FLUOROSCOPY Fluoroscopy time 11 seconds was used during Port-A-Cath insertion. 1 image/s document/s the tianna levine
[2018-03-01 07:30] LABS: Glucose,Whole Blood 231 mg/dL (75-99)
== END 2018-02-24 15:15 | disposition home or self-care (01) ==
LOC: OR 11:10
PROVIDERS: ATTEND Surgery
DX: C82.18 Follicular lymphoma grade II, lymph nodes of multiple sites (principal); D61.818 Other pancytopenia; I10 Essential (primary) hypertension; E78.00 Pure hypercholesterolemia, unspecified; E11.9 Type 2 diabetes mellitus without complications; Z85.3 Personal history of malignant neoplasm of breast; R53.0 Neoplastic (malignant) related fatigue; R11.0 Nausea; R63.4 Abnormal weight loss; Z68.24 Body mass index [BMI] 24.0-24.9, adult; R09.81 Nasal congestion; B37.0 Candidal stomatitis; R53.1 Weakness; I25.10 Atherosclerotic heart disease of native coronary artery without angina pectoris; I11.0 Hypertensive heart disease with heart failure; I50.9 Heart failure, unspecified; K21.9 Gastro-esophageal reflux disease without esophagitis; M19.90 Unspecified osteoarthritis, unspecified site; J90 Pleural effusion, not elsewhere classified; I25.2 Old myocardial infarction; Z92.21 Personal history of antineoplastic chemotherapy; Z92.3 Personal history of irradiation; Z95.5 Presence of coronary angioplasty implant and graft; Z95.0 Presence of cardiac pacemaker; Z95.2 Presence of prosthetic heart valve; Z79.01 Long term (current) use of anticoagulants; Z79.84 Long term (current) use of oral hypoglycemic drugs; Z79.02 Long term (current) use of antithrombotics/antiplatelets; Z79.51 Long term (current) use of inhaled steroids; Z79.899 Other long term (current) drug therapy; Z99.81 Dependence on supplemental oxygen; Z90.710 Acquired absence of both cervix and uterus; Z88.2 Allergy status to sulfonamides; Z91.040 Latex allergy status; Z91.09 Other allergy status, other than to drugs and biological substances; Z87.891 Personal history of nicotine dependence
CPT/HCPCS: 85610; 77001; 36561; C1788; J2250; J1644; J1642; J2405; J2001; J3010; J0690; J2704

== ENCOUNTER 2018-04-01 15:32 | Emergency (ER) | payer MEDICARE ==
[2018-04-01 15:39] VITALS: BP 122/63; PULSE 104; RESP 20; TEMP 98.2
--- NOTE | 2018-04-01 16:19 | ED ---
General Adult HPI - General Chief complaint: Recheck/Abnormal Lab/Rx Stated complaint: Med issue Time Seen by Provider: 04/01/18 16:11 Source: patient Mode of arrival: ambulatory Limitations: no limitations - History of Present Illness Initial comments: Patient is a 77-year-old female undergoing chemotherapy who presents with a chief complaint of a malfunction of her Neulasta device. Patient states of the device was also be placed on the skin to give a slow injection of chemotherapy over 27 hours. She says that she put on at 11:00 yesterday and today it started making a funny noise. The patient states that when she removed the device there is black blood around the injection site. While looking at device , the patient states that she doesn't think she got any of the medication. Patient is under the care of Dr. Tafoya, she does not have any other complaints today. - Related Data Home Medications Medication Instructions Recorded Confirmed Acetaminophen/Diphenhydramine 2 tab PO HS 03/17/15 03/17/18 [Tylenol PM 500-25mg] Ascorbic Acid [Vitamin C] 500 mg PO DAILY 03/17/15 03/17/18 Atorvastatin [Lipitor] 10 mg PO MOWEFR 03/17/15 03/17/18 Calcium Carbonate/Vitamin D3 2 tab PO BID 03/17/15 03/17/18 [Calcium 600-Vit D3 400 Tablet] Carvedilol 12.5 mg PO BID 03/17/15 03/17/18 Cranberry Fruit Extract [Theracran] 650 mg PO DAILY 03/17/15 03/17/18 Estradiol [Estrace Cream 0.01%] 1 applicator VAGINAL Q3D PRN 03/17/15 03/17/18 Water View-3 Fatty Acids [Water View-3] 1,000 mg PO BID 03/17/15 03/17/18 Omeprazole [PriLOSEC] 20 mg PO BID 03/17/15 03/17/18 Valsartan [Diovan] 160 mg PO HS 03/17/15 03/17/18 metFORMIN HCL [Glucophage] 500 mg PO QAM 03/17/15 03/17/18 Clopidogrel Bisulfate [Plavix] 75 mg PO DAILY 12/12/17 03/17/18 Furosemide [Lasix] 40 mg PO QAM 12/12/17 03/17/18 Multivit-Min/Iron/Folic/Lutein 1 tab PO DAILY 12/12/17 03/17/18 [Centrum Silver Women Tablet] Polyethylene Glycol 3350 [Miralax] 17 gm PO DAILY 12/12/17 03/17/18 Potassium Chloride [Klor-Con 10] 10 meq PO DAILY 12/12/17 03/17/18 Warfarin [Coumadin] 7.5 mg PO DIRECTED 12/12/17 03/17/18 metFORMIN HCL [Glucophage] 250 mg PO HS 12/12/17 03/17/18 Ferrous Sulfate [Feosol] 325 mg PO DAILY 02/21/18 03/17/18 Fluticasone Nasal [place] [Flonase 1 spray EA NOSTRIL DAILY 02/21/18 03/17/18 Nasal [place]] Gatifloxacin [Zymaxid Ophth Soln] 1 drop RIGHT EYE Q6H 02/21/18 03/17/18 Loratadine [Claritin] 10 mg PO DAILY 02/21/18 03/17/18 Ondansetron HCl [Zofran] 4 mg PO DAILY PRN 02/21/18 03/17/18 Saline Nasal Gel [[place] Nasal Gel] 1 applic TOPICAL DAILY 02/21/18 03/17/18 Venlafaxine HCl ER [Effexor XR] 3 tab PO HS 02/21/18 03/17/18 Allergies Allergy/AdvReac Type Severity Reaction Status Date / Time adhesive Allergy Rash/Hives Verified 04/01/18 15:39 iodine Allergy Rash/Hives Verified 04/01/18 15:39 latex Allergy Rash/Hives Verified 04/01/18 15:39 Sulfa (Sulfonamide Allergy severe Verified 04/01/18 15:39 Antibiotics) headache and rash Review of Systems ROS Statement: Those systems with pertinent positive or pertinent negative responses have been documented in the HPI. ROS Other: All systems not noted in ROS Statement are negative. Past Medical History Past Medical History: Blood Disorder, Coronary Artery Disease (CAD), Cancer, Heart Failure, Diabetes Mellitus, Eye Disorder, GERD/Reflux, Hyperlipidemia, Hypertension, Osteoarthritis (OA) Additional Past Medical History / Comment(s): CARDIAC HISTORY (DEFER TO DR. HERNANDEZ NOTES). RT BREAST [id number]. 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 COLONOSCOPY,. RT [id number] RADIATION & ORAL TAMOXIFEN,. Bone Marrow Dx x2 Past Anesthesia/Blood Transfusion Reactions: No Reported Reaction, Motion Sickness Date of Last Stent Placement:: x2 stents Type of Cardiac Device: Permanent Pacemaker Device Placement Date:: 2008 Past Psychological History: Depression Smoking Status: Former smoker Past Alcohol Use History: None Reported Past Drug Use History: None Reported - Past Family History Father Family Medical History: Cancer Additional Family Medical History / Comment(s): COLON CA Mother Family Medical History: Cancer Additional Family Medical History / Comment(s): BREAST CA General Exam Limitations: no limitations General appearance: alert, in no apparent distress Head exam: Present: atraumatic, normocephalic Eye exam: Present: normal appearance ENT exam: Present: normal exam Neck exam: Present: normal inspection Respiratory exam: Absent: respiratory distress Cardiovascular Exam: Present: normal rhythm, tachycardia GI/Abdominal exam: Present: soft. Absent: distended, tenderness Rectal exam: Present: deferred Extremities exam: Present: normal inspection Back exam: Present: normal inspection Neurological exam: Present: alert, oriented X3 Psychiatric exam: Present: normal affect, normal mood Skin exam: Present: warm, dry, intact Course Vital Signs 04/01/18 15:36 Temperature 98.2 F Pulse Rate 104 H Respiratory 20 Rate Blood Pressure 122/63 O2 Sat by Pulse 98 Oximetry Medical Decision Making - Medical Decision Making Patient presents with a chief complaint of a chemotherapy device malfunction. On initial evaluation, vitals are stable, patient in no acute distress. We'll contact Dr. Tafoya for further instruction. 4:55 PM Case discussed with Dr. Tafoya who states that the patient can follow up in the office on tuesday and to bring the device with her. Patient agreeable with the care plan. she is stable for discharge. Disposition Clinical Impression: Breakage of medical device sales consultant Disposition: HOME SELF-CARE Condition: Good Instructions: Pegfilgrastim (By injection) Is patient prescribed a controlled substance at d/c from ED?: No Referrals: Eduardo Garcia DO [Primary Care Provider] - 1-2 days
== END 2018-04-01 17:19 | disposition home or self-care (01) ==
LOC: EC 15:32
DX: T85.618A Breakdown (mechanical) of other specified internal prosthetic devices, implants and grafts, initial encounter (principal); I25.10 Atherosclerotic heart disease of native coronary artery without angina pectoris; I11.0 Hypertensive heart disease with heart failure; I50.9 Heart failure, unspecified; E11.9 Type 2 diabetes mellitus without complications; K21.9 Gastro-esophageal reflux disease without esophagitis; E78.5 Hyperlipidemia, unspecified; D61.818 Other pancytopenia; F32.9 Major depressive disorder, single episode, unspecified; Z85.3 Personal history of malignant neoplasm of breast; Z85.89 Personal history of malignant neoplasm of other organs and systems; Z92.21 Personal history of antineoplastic chemotherapy; Z80.0 Family history of malignant neoplasm of digestive organs; Z80.3 Family history of malignant neoplasm of breast; Z98.890 Other specified postprocedural states; Z95.5 Presence of coronary angioplasty implant and graft; Z95.0 Presence of cardiac pacemaker; Z95.2 Presence of prosthetic heart valve; Z87.891 Personal history of nicotine dependence; Z79.84 Long term (current) use of oral hypoglycemic drugs; Z79.02 Long term (current) use of antithrombotics/antiplatelets; Z79.01 Long term (current) use of anticoagulants; Z79.51 Long term (current) use of inhaled steroids; Z79.899 Other long term (current) drug therapy; Z91.048 Other nonmedicinal substance allergy status; Z91.040 Latex allergy status; Z88.2 Allergy status to sulfonamides
CPT/HCPCS: 99283